=== PATIENT | male | born 1965 | race Caucasian/White ===

== ENCOUNTER 2017-06-25 15:42 | Emergency (ER) | payer OTHER ==
[~2017-06-25] VITALS: Ht 177.8 cm; Wt 141.5 kg
[~2017-06-25 15:42] MED LIST: BACTRIM DS TAB1 EACH PO; NORCO 5-325 TA1 EACH PO
--- NOTE | 2017-06-25 19:53 | EKG ---
[facility] [address] [facility] [place] [address] Signed Sinus rhythm Otherwise normal ECG No previous ECGs available Confirmed by ILAN GALINDO MD ([id number] on 06/25/2017 7:53:41 PM Electronically Signed By: ILAN GALINDO MD 06/25/171952 PATIENT NAME: CONNOR EDWARDS Electrocardiogram DATE OF : 67 PHYSICIAN: ILAN GALINDO MD REPORT #: [id number] REPORT IS CONFIDENTIAL AND NOT TO BE RELEASED WITHOUT AUTHORIZATION
== END 2017-06-25 19:17 | disposition home or self-care (01) ==
LOC: ED 15:42
DX: R07.89 Other chest pain (principal); I10 Essential (primary) hypertension; Z79.899 Other long term (current) drug therapy
CPT/HCPCS: 71046; 71275; 74174; 80053; 84484; 85025; 85379; 93005; 93010; 99284; Q9967

== ENCOUNTER 2020-11-07 18:06 | Emergency (ER) | payer OTHER ==
[~2020-11-07] VITALS: Ht 177.8 cm; Wt 122.5 kg
[2020-11-07] MEDS ORDERED: DILTIAZEM ER120 M2 PO (18:24)
[2020-11-07] MEDS ORDERED: ATORVASTATIN CA20 MG PO (18:24)
[2020-11-07] MEDS ORDERED: LO-DOSE ASPIRIN81 MG PO (18:24)
[2020-11-07] MEDS ORDERED: DULOXETINE HCL60 MG PO (18:25)
--- NOTE | 2020-11-08 07:11 | EKG ---
[facility] [address] [facility] [place], [place] [address] Signed Normal sinus rhythm Normal ECG When compared with ECG of 25-JUN-2017 15:45, No significant change was found Confirmed by JESSICA SMITH MD ([id number]) on 11/08/2020 7:11:06 AM Electronically Signed By: JESSICA SMITH MD 11/08/20 0711 PATIENT NAME: KASANDRADAMARISCONNOR Electrocardiogram DATE OF : 67 PHYSICIAN: JESSICA SMITH MD REPORT #: [id number] REPORT IS CONFIDENTIAL AND NOT TO BE RELEASED WITHOUT AUTHORIZATION
== END 2020-11-07 21:37 | disposition home or self-care (01) ==
LOC: ED 18:06
DX: R06.02 Shortness of breath (principal); Z20.822 Contact with and (suspected) exposure to COVID-19; I10 Essential (primary) hypertension; G47.30 Sleep apnea, unspecified; J45.909 Unspecified asthma, uncomplicated; Z79.899 Other long term (current) drug therapy; Z79.82 Long term (current) use of aspirin
CPT/HCPCS: 71045; 80053; 81001; 85025; 85610; 85730; 93005; 93010; 99285-25; C9803; U0003